=== PATIENT | female | born 1960 | race Caucasian/White ===

== ENCOUNTER 2016-08-07 11:35 | Emergency (ER) | payer OTHER ==
[2016-08-07] MEDS ORDERED: ASPIRIN 81 MG CHEW TAB ONE (11:54)
[2016-08-07] MEDS ORDERED: TRAMADOL 50 MG TAB ONE (12:49)
[2016-08-07] MEDS ORDERED: ALU/MAG/SIM 30 ML UDC ONE (14:05)
[2016-08-07] MEDS ORDERED: LIDOCAINE 2% VISC 15 ML UDC ONE (14:05)
== END 2016-08-07 15:38 | disposition home or self-care (01) ==
LOC: ER 11:35
DX: R07.2 Precordial pain (principal); Z79.899 Other long term (current) drug therapy; I10 Essential (primary) hypertension; E78.00 Pure hypercholesterolemia, unspecified; M79.7 Fibromyalgia; K21.9 Gastro-esophageal reflux disease without esophagitis; I25.2 Old myocardial infarction; Z95.5 Presence of coronary angioplasty implant and graft; F17.290 Nicotine dependence, other tobacco product, uncomplicated
CPT/HCPCS: 36415; 71010; 80053; 82550; 83690; 83735; 84484; 85025; 85610; 85730; 93005